=== PATIENT | female | born 1985 | race American Indian/Alaskan Native ===

== ENCOUNTER 2018-11-20 15:13 | Emergency (ER) | payer SELFPAY ==
--- NOTE | 2018-11-20 16:09 | EDM.PDOC ---
ED HPI GENERAL MEDICAL PROBLEM - General Chief Complaint: Chest Pain Stated Complaint: CHEST PAIN AND LEFT SHOULDER PAIN Time Seen by Provider: 11/20/18 16:08 Source of Information: Reports: Patient History Limitations: Reports: No Limitations - History of Present Illness INITIAL COMMENTS - FREE TEXT/NARRATIVE: 32-year-old female of Swedish-speaking as her primary language but she speaks good [place]ian as well. [place] is [place]. She is complaining of sharp stabbing recurrent left-sided chest pain. There is a mild pleuritic component to the pain i.e. it's worse if she takes a deep breath. She states she has a minimal nonproductive cough. No fever no chills. HEENT is described as very sharp and lancinating and occasionally seems to be radiating down her left medial arm and the costochondral nerve distribution. Worse on the left side as compared to her right. No chest wall injuries. She's had no previous surgeries. Onset: Sudden Onset Date: 11/06/18 (She had been having recurrent left-sided pleuritic or sharp stabbing chest pains for the better part of 10-14 days. He more severe and intense and constant the last 24 hours.) Duration: Day(s):, Constant, Getting Worse, Intermittent, Waxing/Waning Location: Reports: Chest (Becoming more constant the last 24 hours), Back Quality: Reports: Ache (Her left upper back as well.), Sharp (Impression for the most part is sharp stabbing lancinating.), Stabbing Severity: Moderate Improves with: Reports: Rest Worsens with: Reports: Movement (Movements will make it worse deep breathing or coughing makes it worse.) Context: Denies: Activity, Exercise, Lifting, Sick Contact, Trauma, Other Associated Symptoms: Reports: Chest Pain, Cough. 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 ) Left Chest Pain Score (Numeric/FACES): 10 - Related Data Allergies Allergy/AdvReac Type Severity Reaction Status Date / Time shellfish derived Allergy Swelling Verified 11/20/18 15:25 Home Meds: Home Meds Diclofenac Sodium [Voltaren] 50 mg PO TID #30 tab.ec 11/20/18 [Rx] Ibuprofen [Advil] 100 mg PO DAILY PRN 11/20/18 [History] Past Medical History Gastrointestinal History: Reports: GERD Social & Family History - Family History Family Medical History: Noncontributory - Tobacco Use Smoking Status *Q: Current Every Day Smoker Years of Tobacco use: 2 Packs/Tins Daily: 0.3 - Caffeine Use Caffeine Use: Reports: Coffee, Soda - Recreational Drug Use Recreational Drug Use: No - Living Situation & Occupation Living situation: Reports: Single Occupation: Unemployed ED ROS GENERAL - Review of Systems Review Of Systems: See Below Constitutional: Denies: Fever, Chills, Malaise, Weakness, Fatigue HEENT: Reports: No Symptoms Respiratory: Reports: Pleuritic Chest Pain, Cough. Denies: Shortness of Breath , Wheezing, Sputum, Hemoptysis (Nonproductive), Other Cardiovascular: Reports: Chest Pain. Denies: Blood Pressure Problem, Claudication, Dyspnea on Exertion, Edema, Lightheadedness, Orthopnea (See history of present illness), Palpitations Endocrine: Reports: No Symptoms GI/Abdominal: Reports: No Symptoms : Reports: No Symptoms Musculoskeletal: Reports: Back Pain (Pain in her left upper back adjacent to her paraspinal) Skin: Reports: No Symptoms ( muscles.) Neurological: Reports: No Symptoms Psychiatric: Reports: No Symptoms Hematologic/Lymphatic: Reports: No Symptoms Immunologic: Reports: No Symptoms ED EXAM, GENERAL - Physical Exam Exam: See Below Exam Limited By: Uncooperative General Appearance: Alert, WD/WN, No Apparent Distress, Other (BP is 127/80 and came down to 101/72. Sats are 100% on room air respiratory to 18. Afebrile) Eye Exam: Bilateral Eye: Normal Inspection Head: Atraumatic, Normocephalic Neck: Normal Inspection, Supple, Non-Tender, Full Range of Motion. No: Lymphadenopathy (L), Lymphadenopathy (R) Respiratory/Chest: No Respiratory Distress, Lungs Clear, Normal Breath Sounds, No Accessory Muscle Use, Other (She has diffuse pain on palpation of ribs 234 and 5 left and midclavicular line and left anterior x-ray line on the left chest. Rib #5 in the midclavicular line on the right side was very tender as well.) Cardiovascular: Normal Peripheral Pulses, Regular Rate, Rhythm, No Edema, No Gallop, No Murmur, No Rub Peripheral Pulses: 3+: Posterior Tibial (L), Posterior Tibial (R), Dorsalis Pedis (L), Dorsalis Pedis (R) GI/Abdominal: Normal Bowel Sounds, No Organomegaly (Or Elias sign.), No Distention, Tender (Tenderness in the epigastrium only.), Other Back Exam: Other (Examination of her back and found rib head subluxation at T4 on the right side and T4 on the left side but also thoracic 8 and 7 on the left side) Extremities: Normal Inspection, Normal Range of Motion, Non-Tender, No Pedal Edema, Normal Capillary Refill Neurological: Alert, Oriented, CN II-XII Intact, Normal Cognition Psychiatric: Normal Affect, Anxious Skin Exam: Warm, Dry, Intact (Mildly anxious), Normal Color, No Rash EKG INTERPRETATION EKG Date: 11/20/18 Time: 15:21 Rhythm: NSR Rate (Beats/Min): 62 Kimberly: Normal P-Wave: Present QRS: Other (Nonspecific intraventricular conduction delay. Borderline incomplete right bundle branch block pattern.) ST-T: Other QT: Normal (Diffuse early repolarization pattern.) EKG Interpretation Comments: Borderline ECG Course - Vital Signs Last Recorded V/S: Last Vital Signs Temp 36.3 C 11/20/18 15:21 Pulse 60 11/20/18 15:21 Resp 18 11/20/18 15:21 BP 127/80 11/20/18 15:21 Pulse Ox 100 11/20/18 15:21 - Orders/Labs/Meds Orders: Active Orders 24 hr Category Date Time Status EKG 12 Lead [EKG Documentation Completion] [RC] STAT Care 11/20/18 17:13 Active - Radiology Interpretation Free Text/Narrative:: 32-year-old female of [place] speaking line which primarily presents to the ED with diffuse sharp stabbing recurrent chest pains on the left side mostly and intermittently into her back as well. She's had them off and on for 2 years but the last 2 weeks they've been more severe and over the last 24 hours more severe or intense and more frequent. Pains are spasmodic very sharp and stabbing and make it difficult to breathe at times. Emanation reveals normal heart and lungs. Normal blood pressure. Exam reveals diffuse chest wall tenderness particularly ribs 2-5 on the left side in the midclavicular line and also in the left anterior axillary line. I believe the pain in her left arm is referred from costochondral nerve inflammation. The fifth rib was relatively tender on the right side of the chest. For she has a viral inflammation of her chest wall involving the periosteum of the ribs. A chest x-ray will be done to confirm this. Her ECG is sinus rhythm at 62 with no signs of ischemia. - Re-Assessments/Exams Free Text/Narrative Re-Assessment/Exam: 11/20/18 17:10: Portable chest x-ray is completely normal. Normal cardiac silhouette clear lung kaur. Patient will be discharged home. I'm going to place her on Voltaren 50 mg 3 times a day with meals for the next 8 days to reduce pain and inflammation in the chest wall. She appears to have more of a periostitis of the ribs most likely viral induced. Counseled her labs since the cause of the chest pain was very obvious on examination and she has a normal ECG. Patient was reassured. Departure - Departure Time of Disposition: 17:07 Disposition: Home, Self-Care 01 Condition: Fair Clinical Impression: Non-cardiac chest pain, Anterior chest wall pain Prescriptions: Diclofenac Sodium [Voltaren] 50 mg PO TID #30 tab.ec Instructions: Chest Wall Pain, [id number] Referrals: PCP,Not In Area [Primary Care Provider] - Forms: ED Department Discharge Additional Instructions: Evaluation the emergent today in regards to diffuse left precordial chest pain which is quite sharp and stabbing and worsened by deep breathing for the last 10 -14 days. Intermittent similar problems in the past which have always resolved within a short period of time. Therefore concerns arose about whether or not the current pain syndrome could be heart related. However examination reveals marked tenderness of the left upper ribs from 2-6 on the left side and rib only 5 on the right side. The lungs are clear on auscultation with the stethoscope. Heart tracing is normal chest x-ray was normal. In your upper back you have's 3 areas of rib head subluxation that is causing muscle spasm in your upper back and chronic pain. He should be addressed by a masseuse or a chiropractor to have them put back into place. Treatment for the anterior chest wall pain is anti-inflammatory medication Voltaren 50 mg 3 times daily with food. Within a day and a half they usually start to work and will relieve pain and inflammation in the lining around the rib that is causing current pain syndrome. May cause of the anterior chest wall pain is usually a viral infection. Expect gradual improvement over the next 5-8 days. - My Orders Last 24 Hours: My Active Orders 11/20/18 17:13 EKG 12 Lead [EKG Documentation Completion] [RC] STAT - Assessment/Plan Last 24 Hours: My Active Orders 11/20/18 17:13 EKG 12 Lead [EKG Documentation Completion] [RC] STAT
--- NOTE | 2018-11-20 17:49 | CR ---
Chest: Portable view of the chest was obtained. Comparison: No prior chest x-ray. Cardiac silhouette and mediastinum are within normal limits for portable technique. Lungs are clear. Bony structures are grossly intact. Impression: 1. Nothing acute is seen on portable chest x-ray. Diagnostic code #1
== END 2018-11-20 17:17 | disposition home or self-care (01) ==
LOC: JD.ED 15:13
DX: R07.89 Other chest pain (principal); F17.210 Nicotine dependence, cigarettes, uncomplicated; Z91.013 Allergy to seafood
CPT/HCPCS: 71045; 71045-26; 93005; 93010; 99285; 99285-25